=== PATIENT | female | born 1970 | race Caucasian/White ===

== ENCOUNTER 2020-01-15 12:44 | Inpatient (IN) | payer BC, OTHER ==
[~2020-01-15] VITALS: Ht 167.6 cm; Wt 110.9 kg
[2020-01-15] MEDS ORDERED: PRED20TA PO (13:01)
[2020-01-15] MEDS ORDERED: ALBU8.5H INH (13:01)
[2020-01-15 14:23] LABS: BASO # 0.1 10^3/uL (0.0-0.2); BASO % 1.2 % (0.0-1.0); EOS # 0.3 10^3/uL (0.0-0.5); EOS % 3.3 % (0.0-3.0); HEMATOCRIT 41.3 % (36.0-47.0); HEMOGLOBIN 14.3 g/dl (12.0-15.5); LYMPH # 2.8 10^3/uL (1.5-5.0); LYMPH % 28.6 % (24.0-44.0); MEAN CORPUSCULAR HEMOGLOBIN 32.2 pg (27.0-33.0); MEAN CORPUSCULAR HGB CONC 34.6 g/dl (32.0-36.5); MONO # 0.7 10^3/uL (0.0-0.8); MONO % 6.7 % (0.0-5.0); NEUTROPHILS # 5.6 10^3/uL (1.5-8.5); NEUTROPHILS % 58.1 % (36.0-66.0); PLATELET COUNT, AUTOMATED 212 10^3/uL (150-450); RED BLOOD COUNT 4.44 10^6/uL (4.00-5.40); WHITE BLOOD COUNT 9.6 10^3/uL (4.0-10.0)
[2020-01-15 14:34] LABS: INR 0.95; PROTHROMBIN TIME 12.9 SECONDS (12.5-14.3)
[2020-01-15 14:42] LABS: ERYTHROCYTE SEDIMENTATION RATE 15 mm/hr (0-20)
[2020-01-15 14:50] LABS: BLOOD UREA NITROGEN 17 MG/DL (7-18); CALCIUM LEVEL 8.8 MG/DL (8.5-10.1); CARBON DIOXIDE LEVEL 27 MEQ/L (21-32); CHLORIDE LEVEL 103 MEQ/L (98-107); CREATININE FOR GFR 0.79 MG/DL (0.55-1.30); GLOMERULAR FILTRATION RATE > 60.0 (>58); GLUCOSE, FASTING 235 MG/DL (70-100); POTASSIUM SERUM 3.5 MEQ/L (3.5-5.1); SODIUM LEVEL 136 MEQ/L (136-145)
--- NOTE | 2020-01-15 15:01 | REP ---
INDICATION: pain/hx dvt COMPARISON: None. TECHNIQUE: Real time compression and duplex Doppler interrogation of the left lower extremity deep venous system is performed. FINDINGS: The left common femoral, superficial femoral and popliteal veins are fully compressible with transducer pressure and demonstrate normal spontaneous and phasic flow, without evidence of deep venous thrombosis. However there is thrombus seen in the left tibioperoneal trunk. IMPRESSION: No evidence of deep venous thrombosis of the left lower extremity femoral popliteal venous system. However there is thrombus seen in the left tibioperoneal trunk. <Electronically signed by Rui Bowen > 01/15/20 0990
[2020-01-15] MEDS ORDERED: ISOVUE-370 76% 100ML VIAL As Ordered ONE (15:48)
--- NOTE | 2020-01-15 17:08 | REP ---
INDICATION: sob/left leg swelling/?pe. COMPARISON: None. TECHNIQUE: CT angiogram chest performed following the intravenous administration of 100 cc of Isovue 370. Sagittal and coronal reconstruction images are performed. FINDINGS: Lungs: There are mild scattered small patchy parenchymal opacities bilaterally, right greater than left, likely representing areas of scattered parenchymal infiltrate. Mediastinum: No adenopathy. Pulmonary arteries: Pulmonary emboli are seen in the left upper and lower lobes. A small pulmonary embolism is also seen in the posterior basilar right lower lobe. Misti: No adenopathy. Axilla: No adenopathy. Pleura: No effusion. Heart: There is mild cardiomegaly. Thoracic aorta: No aneurysm or dissection. Upper abdominal structures: Prior cholecystectomy and gastric surgery. Visualized osseous structures: Unremarkable. IMPRESSION: Pulmonary emboli in the left upper lower lobes as well as in the posterior basilar segmental branch of the right lower lobe. Mild scattered patchy diffuse infiltrates bilaterally right greater than left. <Electronically signed by Rui Bowen > 01/15/20 2221
[2020-01-15 18:11] VITALS: O2SAT 98
[2020-01-15] MEDS ORDERED: MAGN400C PO (20:03)
[2020-01-15] MEDS ORDERED: ZINC1TAB2 PO (20:03)
[2020-01-15] MEDS ORDERED: NORE0.353 PO (20:03)
[2020-01-15] MEDS ORDERED: IRON27TA2 PO (20:03)
--- NOTE | 2020-01-15 23:41 | HPEPDOC ---
General Date of Admission Date of Service: Jan 15, 2020 Primary Care Physician: Bucky Becker MD Attending Physician: Nilo Alvarado MD Chief Complaint The patient is a 49-year-old female admitted with a reason for visit of Leg Pain. Source: Patient Exam Limitations: No limitations History of Present Illness In roughly 2014, after a surgery, Ms. Jewell had bilateral provoked DVTs. At that point she took Xarelto for 6 months and then stopped. On December 302019 she was seen by her primary care physician and was diagnosed with bronchitis, "a touch of pneumonia", a urinary tract infection, and acute otitis media. At that point in time she was COVID tested. This turned out to be positive. She was placed in a mandatory isolation by [facility]; she reports that the isolation order was lifted on January 10 2020. Several days after starting Bactrim for a urinary tract infection (as above) she developed a rash on her extremities. She was seen for this rash and was instructed to stop taking the Bactrim, so at this point in time she has not been on antibiotics for several days. 3-4 days ago she began to notice some left leg pain and swelling. She stated that this feels quite similar to when she had a DVT about 5 years ago. On day of admission she called her primary care physician's office to receive medical certification to return back to work tomorrow. She did mention the leg pain and swelling to them and they referred her to the emergency department for further evaluation and treatment. Home Medications Scheduled Ferrous Gluconate (Iron) 236 Mg Tablet, 27 MG PO DAILY, (Reported) Magnesium Oxide (Magnesium) 400 Mg Capsule, 400 MG PO DAILY, (Reported) Norethindrone (Norethindrone) 0.35 Mg Tablet, 1 TAB PO DAILY, (Reported) Prednisone (Prednisone) 20 Mg Tablet, 40 MG PO DAILY, (Reported) DUE FOR 40MG 01/15/20 AND 01/16/20 THEN STOP Zinc (Zinc) 50 Mg Tablet, 50 MG PO DAILY, (Reported) Scheduled PRN Albuterol Sulfate (Albuterol Sulfate Hfa) 8.5 Gm Hfa.aer.ad, 2 PUFFS INH Q6H PRN for SHORTNESS OF BREATH, (Reported) Allergies Coded Allergies: sulfamethoxazole (Verified Allergy, Unknown, RASH/HIVES, 01/15/20) trimethoprim (Verified Allergy, Unknown, RASH/HIVES, 01/15/20) Past Medical History Medical History None reported Surgical History Gastric bypass (2009), abdominoplasty (2015), cholecystectomy (2016) Family History Her father at 77 years of age from complications of rheumatic heart diseas e. Her mother is currently alive and 74 years old. She has CAD, status post SC, hypertension, hyperlipidemia, multiple medication allergies. She has one sister who, interestingly, recently developed DVT after extended travel. This sister also had a 16 pound benign tumor removed from her abdomen. Social History * Smoker: non-smoker Alcohol: rarely (about 2 drinks per week) Drugs: denies She owns her own home and lives there with her . She has all that she needs on one floor and no stairs are necessary to access the house. A-FIB/CHADSVASC A-FIB History Current/History of A-Fib/PAF?: No Current PO Anticoag Therapy: Yes Review of Systems Constitutional: Reports: Fatigue; Denies: Chills, Fever ENT: Reports: Ear Pain; Denies: Dysphagia Skin: Reports: Rash (related to Bactrim); Denies: Jaundice Pulmonary: Denies: Dyspnea, Cough Cardiovascular: Denies: Chest Pain, Palpitations Gastrointestinal: Denies: Nausea, Vomiting, Abdominal Pain, Diarrhea, Constipation, Melena, Hematochezia Genitourinary: Denies: Dysuria, Hematuria Hematologic: Denies: Bleeding Excessively, Enlarged Lymph Nodes Endocrine: Denies: Heat Intolerance, Cold Intolerance Neurological: Denies: Numbness, Incoordination, Change in speech, Confusion Psych: Reports: Mood Normal; Denies: Memory Issues Physical Examination General Exam: Positive: Alert, Cooperative, No Acute Distress Eye Exam: Positive: PERRLA, Conjunctiva & lids normal; Negative: Sclera icteric ENT Exam: Positive: Atraumatic, Mucous membr. moist/pink, Pharynx Normal, Nares Patent, Tympanic Membranes Normal, Ext Auditory Canal Nml Neck Exam: Positive: Supple; Negative: JVD, Lymphadenopathy Chest Exam: Positive: Clear to auscultation, Normal air movement Heart Exam: Positive: Rate Normal, Regular Rhythm, Normal S1, Normal S2; Negative: Murmurs, Rubs Abdomen Exam: Positive: Normal bowel sounds, Soft; Negative: Tenderness, Hepatospenomegaly Extremity Exam: Positive: Edema (1+ left lower extremity edema), Normal pulses; Negative: Clubbing, Cyanosis Skin Exam: Positive: Nl turgor and temperature, Rash (she has a macular salmon- colored rash spread diffusely on her right forearm and left thigh); Negative: Breakdown Neuro Exam: Positive: Normal Gait, Normal Speech Psych Exam: Positive: Mental status NL, Mood NL, Oriented x 3 Vital Signs Vital Signs Date Time Temp Pulse Resp B/P (MAP) Pulse Ox O2 Delivery O2 Flow Rate FiO2 01/15/20 19:11 96.8 79 16 168/81 (110) 98 Room Air Laboratory Data Labs 24H Laboratory Tests 2 01/15/20 14:15: Immature Granulocyte % (Auto) 2.1, Neutrophils (%) (Auto) 58.1, Lymphocytes (%) (Auto) 28.6, Monocytes (%) (Auto) 6.7H, Eosinophils (%) (Auto) 3.3H, Basophils (%) (Auto) 1.2H, Neutrophils # (Auto) 5.6, Lymphocytes # (Auto) 2.8, Monocytes # (Auto) 0.7, Eosinophils # (Auto) 0.3, Basophils # (Auto) 0.1, Nucleated Red Blood Cells % (auto) 0.0, Erythrocyte Sedimentation Rate 15, Prothrombin Time 12.9, Prothromb Time International Ratio 0.95, Activated Partial Thromboplast Time 22.0L, Anion Gap 6L, Glomerular Filtration Rate > 60.0, Calcium Level 8.8, C-Reactive Protein, Quantitative 1.10H CBC/BMP Laboratory Tests 01/15/20 14:15 Assessment/Plan This is a 49-year-old woman who requires admission to an acute care facility for treatment and monitoring of bilateral pulmonary emboli, a left lower extremity DVT, and bilateral pulmonary infiltrations. Problems (1) Bilateral pulmonary embolism Status: Acute Discussed With: Nurse, Patient Problem Text: She has bilateral PEs. Fortunately, these do not seem to be impacting her clinically in a significant way. Nonetheless she is certainly at increased risk for serious complication based on the fact that she has bilateral disease. Additionally, this is the second provoked DVT she has had and her sister recently had a provoked DVT as well. I suspect there may be a genetic component to her hypercoagulability. I've ordered a hypercoagulability workup in order to clarify this. I started her on Xarelto at 15 mg twice a day for 21 days. After that anticipate she'll move to 20 mg daily. (2) Acute deep vein thrombosis (DVT) of tibial vein of left lower extremity Status: Acute Problem Text: She has left lower extremity DVT. This is the second provoked DVT she has had and her sister recently had a provoked DVT as well. I suspect there may be a genetic component to her hypercoagulability. I've ordered a hypercoagulability workup in order to clarify this. I started her on Xarelto at 15 mg twice a day for 21 days. After that anticipate she'll move to 20 mg daily. (3) Bilateral pneumonia Discussed With: Patient Problem Text: Honestly, it is not clear whether the radiographic findings on the CT represent the the end of her COVID infection, an incompletely treated pneumonia, or new process altogether. In order to help clarify this and have ordered a procalcitonin. In the meantime I have started on moxifloxacin for empiric treatment of a primary or secondary bacterial infection. (4) Adverse reaction to sulfa antibiotic Problem Text: She has a verified rash related to the Bactrim she took for a urinary tract infection. This is resolving and does not require further treatment but we should kalpesh Bactrim as a true (non life-threatening) drug allergy. Plan / VTE VTE Prophylaxis Ordered?: Yes Plan Advanced Directives: Health Care Proxy (HCP) (she verbally identified her , Ranjeet Jewell [phone], as her alternate decision-maker should she be unable to make her own decisions. We explicitly discussed her CODE STATUS and she wishes to be FULL CODE at this time.) Nilo Alvarado MD Jan 15, 2020 23:41
[2020-01-15] MEDS ORDERED: ACETAMINOPHEN TAB 650MG DOSE (2X325MG) PO PRN (23:45)
[2020-01-15] MEDS ORDERED: ALBUTEROL 90 MCG/ACT 8GM HFA INHALER INH PRN (23:45)
[2020-01-16] MEDS ORDERED: RIVAROXABAN 15 MG TAB (XARELTO) PO ONE
[2020-01-16] MEDS ORDERED: MOXIFLOXACIN HCL 400 MG in IV 1 EA IV SCH ×2
[2020-01-16 02:13] VITALS: BP 133/93
[2020-01-16 06:00] VITALS: BP 140/93
[2020-01-16 06:44] LABS: BASO # 0.1 10^3/uL (0.0-0.2); BASO % 1.1 % (0.0-1.0); EOS # 0.3 10^3/uL (0.0-0.5); EOS % 3.4 % (0.0-3.0); HEMATOCRIT 37.1 % (36.0-47.0); HEMOGLOBIN 12.8 g/dl (12.0-15.5); LYMPH # 2.1 10^3/uL (1.5-5.0); LYMPH % 25.7 % (24.0-44.0); MEAN CORPUSCULAR HEMOGLOBIN 31.8 pg (27.0-33.0); MEAN CORPUSCULAR HGB CONC 34.5 g/dl (32.0-36.5); MEAN CORPUSCULAR VOLUME 92.3 fl (80.0-96.0); MONO # 0.6 10^3/uL (0.0-0.8); MONO % 7.1 % (0.0-5.0); NEUTROPHILS # 5.1 10^3/uL (1.5-8.5); PLATELET COUNT, AUTOMATED 173 10^3/uL (150-450); RED BLOOD COUNT 4.02 10^6/uL (4.00-5.40); WHITE BLOOD COUNT 8.3 10^3/uL (4.0-10.0)
[2020-01-16 07:07] LABS: ALBUMIN 2.8 GM/DL (3.2-5.2); ALT/SGPT 77 U/L (12-78); BILIRUBIN,TOTAL 0.5 MG/DL (0.2-1.0); BLOOD UREA NITROGEN 11 MG/DL (7-18); CALCIUM LEVEL 8.4 MG/DL (8.5-10.1); CARBON DIOXIDE LEVEL 30 MEQ/L (21-32); CHLORIDE LEVEL 103 MEQ/L (98-107); CREATININE FOR GFR 0.67 MG/DL (0.55-1.30); GLOMERULAR FILTRATION RATE > 60.0 (>58); GLUCOSE, FASTING 147 MG/DL (70-100); SODIUM LEVEL 137 MEQ/L (136-145)
--- NOTE | 2020-01-16 08:42 | ECGEPIP ---
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
[2020-01-16] MEDS ORDERED: MAGNESIUM OXIDE 400 MG TAB (MAG-OX) PO SCH (09:00)
[2020-01-16] MEDS ORDERED: RIVAROXABAN 15 MG TAB (XARELTO) PO SCH (09:00)
[2020-01-16] MEDS ORDERED: predniSONE 20 MG TAB PO SCH (09:00)
[2020-01-16] MEDS ORDERED: XARE15TA PO (09:23)
[2020-01-16] MEDS ORDERED: XARE20TA PO (09:23)
[2020-01-16] MEDS ORDERED: LEVO750T14 PO (09:24)
--- NOTE | 2020-01-16 09:33 | DS.PDOC ---
Discharge Summary General Date of Admission Jan 15, 2020 at 23:41 Date of Discharge 01/16/20 Discharge Summary PROCEDURES PERFORMED DURING STAY: None ADMITTING DIAGNOSES: 1. Bilateral Pulmonary Embolism 2. Acute DVT of LLE 3. Bilateral pneumonia' 4. Adverse reaction to sulfa antibiotic DISCHARGE DIAGNOSES: 1. Bilateral Pulmonary Embolism 2. Acute DVT of LLE 3. Bilateral pneumonia' 4. Adverse reaction to sulfa antibiotic COMPLICATIONS/CHIEF COMPLAINT: Pneumonia, Pulmonary Emboli, Dvt. HISTORY OF PRESENT ILLNESS: In roughly 2014, after a surgery, Ms. Jewell had bilateral provoked DVTs. At that point she took Xarelto for 6 months and then stopped. On December 302019 she was seen by her primary care physician and was diagnosed with bronchitis, "a touch of pneumonia", a urinary tract infection, and acute otitis media. At that point in time she was COVID tested. This turned out to be positive. She was placed in a mandatory isolation by [facility]; she reports that the isolation order was lifted on January 10 2020. Several days after starting Bactrim for a urinary tract infection (as above) she developed a rash on her extremities. She was seen for this rash and was instructed to stop taking the Bactrim, so at this point in time she has not been on antibiotics for several days. 3-4 days ago she began to notice some left leg pain and swelling. She stated that this feels quite similar to when she had a DVT about 5 years ago. On day of admission she called her primary care physician's office to receive medical certification to return back to work tomorrow. She did mention the leg pain and swelling to them and they referred her to the emergency department for further evaluation and treatment. HOSPITAL COURSE: Patient was started on anticoagulation for bilateral PEs and LLE DVT with xarelto at a loading dose schedule of 15 mg BID for 21 days (which will be followed by xarelto 20 mg daily). She was saturating well on RA at 95%. Given recent treatment for pneumonia by her PCP and questionable findings on CT for possible newly developing pneumonia, she was given empiric moxifloxacin, which was transitioned to PO levaquin 750 mg daily for 5 days. Her Qtc was 420 on 01/15/20. Patient was refered to hematology, and Dr. Brumfeild will follow up. Hypercoagulable workup was sent on admission. Patient has appropriate PCP follow up. DISCHARGE MEDICATIONS: Please see below. ALLERGIES: Please see below. PHYSICAL EXAMINATION ON DISCHARGE: VITAL SIGNS: please see below General: NAD, comfortable HEENT: PERRLA, EOMI, sclerae clear Neck: supple, normal ROM, no JVD Respiratory: lungs CTAB, no wheeze, no rales, no crackles CVS: RRR, normal S1, S2, no murmurs Abdo: soft, no masses, no hepatosplenomegaly, BS+, no rebound tenderness Extremities: 1+ BLE edema MSK: no joint deformities, normal ROM Neuro: no focal neuro deficits, moving all 4 extremities, CN2-12 intact. Strength 5/5 in all 4 extremities. No nystagmus. Skin: macular rash on R arm and L thigh Psych: calm, cooperative, AAO x 3 LABORATORY DATA: Please see below. IMAGING: Venous duplex LLE (01/15/2020): FINDINGS: The left common femoral, superficial femoral and popliteal veins are fully compressible with transducer pressure and demonstrate normal spontaneous and p hasic flow, without evidence of deep venous thrombosis. However there is thrombus seen in the left tibioperoneal trunk. IMPRESSION: No evidence of deep venous thrombosis of the left lower extremity femoral popliteal venous system. However there is thrombus seen in the left tibioperoneal trunk. CTA Chest (01/15/20): IMPRESSION: Pulmonary emboli in the left upper lower lobes as well as in the posterior basilar segmental branch of the right lower lobe. Mild scattered patchy diffuse infiltrates bilaterally right greater than left. PROGNOSIS: good ACTIVITY: As tolerated DIET:as tolerated DISCHARGE PLAN: follow up with PCP 3-5 days. Referred to hematology, Dr. Brumfield will follow up with patient. Take xarelto for anticoagulation, loading schedule 15 mg BID for 21 days, and xarelto 20 mg daily subsequently. DISPOSITION: DC home DISCHARGE INSTRUCTIONS: . Please follow-up with your primary care doctor within 3-5 days . Please follow-up with hematology within 1-2 weeks . Please taking medications as prescribed. . If you develop bleeding, chest pain, shortness of breath, seizures, nausea, fevers, or otherwise worsening of your symptoms, please call 911 or return to the nearest emergency room ITEMS TO FOLLOWUP ON ON OUTPATIENT: 1. Hematology follow up, hypercoagulable labs (ordered while admitted) DISCHARGE CONDITION: Stable TIME SPENT ON DISCHARGE: 35 minutes Vital Signs/I&Os Vital Signs Date Time Temp Pulse Resp B/P (MAP) Pulse Ox O2 Delivery O2 Flow Rate FiO2 01/16/20 06:00 98.2 85 18 140/93 (109) 96 Room Air I&O- Last 24 Hours up to 6 AM 01/16/20 06:00 Intake Total 250 ml Output Total 400 ml Balance -150 ml Laboratory Data Labs 24H Laboratory Tests 2 01/15/20 14:15: Immature Granulocyte % (Auto) 2.1, Neutrophils (%) (Auto) 58.1, Lymphocytes (%) (Auto) 28.6, Monocytes (%) (Auto) 6.7H, Eosinophils (%) (Auto) 3.3H, Basophils (%) (Auto) 1.2H, Neutrophils # (Auto) 5.6, Lymphocytes # (Auto) 2.8, Monocytes # (Auto) 0.7, Eosinophils # (Auto) 0.3, Basophils # (Auto) 0.1, Nucleated Red Blood Cells % (auto) 0.0, Erythrocyte Sedimentation Rate 15, Prothrombin Time 12.9, Prothromb Time International Ratio 0.95, Activated Partial Thromboplast Time 22.0L, Anion Gap 6L, Glomerular Filtration Rate > 60.0, Calcium Level 8.8, C-Reactive Protein, Quantitative 1.10H 01/16/20 06:24: Immature Granulocyte % (Auto) 1.7, Neutrophils (%) (Auto) 61.0, Lymphocytes (%) (Auto) 25.7, Monocytes (%) (Auto) 7.1H, Eosinophils (%) (Auto) 3.4H, Basophils (%) (Auto) 1.1H, Neutrophils # (Auto) 5.1, Lymphocytes # (Auto) 2.1, Monocytes # (Auto) 0.6, Eosinophils # (Auto) 0.3, Basophils # (Auto) 0.1, Nucleated Red Blood Cells % (auto) 0.0, Anion Gap 4L, Glomerular Filtration Rate > 60.0, Calcium Level 8.4L, Total Bilirubin 0.5, Aspartate Amino Transf (AST/SGOT) 46H, Alanine Aminotransferase (ALT/SGPT) 77, Alkaline Phosphatase 99, Total Protein 6.0L, Albumin 2.8L, Albumin/Globulin Ratio 0.9L, Procalcitonin <0.05 CBC/BMP Laboratory Tests 01/15/20 14:15 12/9/20 06:24 Discharge Medications Scheduled Ferrous Gluconate (Iron) 236 Mg Tablet, 27 MG PO DAILY, (Reported) Magnesium Oxide (Magnesium) 400 Mg Capsule, 400 MG PO DAILY, (Reported) Norethindrone (Norethindrone) 0.35 Mg Tablet, 1 TAB PO DAILY, (Reported) Prednisone (Prednisone) 20 Mg Tablet, 40 MG PO DAILY, (Reported) DUE FOR 40MG 01/15/20 AND 01/16/20 THEN STOP Rivaroxaban (Xarelto) 15 Mg Tablet, 15 MG PO BID Rivaroxaban (Xarelto) 20 Mg Tablet, 1 TAB PO DAILY with food Zinc (Zinc) 50 Mg Tablet, 50 MG PO DAILY, (Reported) levoFLOXacin (levoFLOXacin) 750 Mg Tablet, 750 MG PO DAILY Scheduled PRN Acetaminophen (Acetaminophen) 325 Mg Tablet, 650 MG PO Q4H PRN for PAIN OR FEVER Albuterol Sulfate (Albuterol Sulfate Hfa) 8.5 Gm Hfa.aer.ad, 2 PUFFS INH Q6H PRN for SHORTNESS OF BREATH, (Reported) Allergies Coded Allergies: sulfamethoxazole (Verified Allergy, Unknown, RASH/HIVES, 01/15/20) trimethoprim (Verified Allergy, Unknown, RASH/HIVES, 01/15/20) HELADIO BARKER MD Jan 16, 2020 09:33
[2020-01-16] MEDS ORDERED: ACET1TAB55 PO (10:36)
[2020-01-16 11:02] LABS: DRVV SCREEN 79.1 SEC
[2020-01-16 11:11] LABS: DRVV CONFIRM 56.4 SEC; LUPUS CONFIRM RATIO 1.5
[2020-01-16 11:12] LABS: NORMALIZED RATIO 1.33 (0.00-1.20)
[2020-01-18 03:07] LABS: HEXAGONAL PHASE PHOSPHOLIPID 0 sec (0-11)
== END 2020-01-16 14:50 | disposition home or self-care (01) | DRG 197 ==
LOC: M ED 12:44 → M MS5PR 23:41 → ENRESERV 01-16 00:46 → M ED INP 01-16 02:02 → M MS5PR 01-16 02:06
PROVIDERS: ADMIT Family Medicine; ATTEND Family Medicine
DX: I82.442 Acute embolism and thrombosis of left tibial vein (principal); I26.99 Other pulmonary embolism without acute cor pulmonale; J18.9 Pneumonia, unspecified organism; Z79.899 Other long term (current) drug therapy; Z88.2 Allergy status to sulfonamides; Z88.8 Allergy status to other drugs, medicaments and biological substances

== ENCOUNTER → 2020-02-13 | Outpatient (CLI) | payer BC, OTHER ==
[~2020-02-13] MED LIST: ACET1TAB55 PO; ALBU8.5H INH; IRON27TA2 PO; LEVO750T14 PO; MAGN400C PO; NORE0.353 PO; PRED20TA PO; XARE15TA PO; XARE20TA PO; ZINC1TAB2 PO
--- NOTE | 2020-02-13 15:36 | REP ---
INDICATION: LOBAR PNEUMONIA COMPARISON: None. TECHNIQUE: PA and lateral. FINDINGS: The mediastinum and cardiac silhouette are normal. The lung yee are clear and without acute consolidation, effusion, or pneumothorax. The skeletal structures are intact and normal. IMPRESSION: No acute cardiopulmonary process. <Electronically signed by Moy Rios > 02/13/20 1539
== END ==
LOC: M WUC 14:30
PROVIDERS: ATTEND Physician Assistant
DX: J18.1 Lobar pneumonia, unspecified organism (principal)